=== PATIENT | female | born 1975 | race Caucasian/White ===

== ENCOUNTER 2016-04-22 13:49 | Emergency (ER) | payer BC | END 2016-04-22 17:55 | disposition left against medical advice (07) | LOC: UCCORT 13:49 | DX: Z53.21 Procedure and treatment not carried out due to patient leaving prior to being seen by health care provider (principal); M54.5 Low back pain ==

== ENCOUNTER 2016-08-23 08:54 | Day surgery (SDC) | payer BC ==
--- NOTE | 2016-08-20 18:12 | HP ---
PREOPERATIVE HISTORY AND PHYSICAL: DATE OF ADMISSION: 08/23/16 This patient is scheduled for same-day surgery admission by Dr. Mcgrath on Friday08/23/16. DATE OF EXAM: 08/20/16 ATTENDING SURGEON: Dr. Joan Mcgrath (dictated by Trinity Rios NP). CHIEF COMPLAINT: Bloody nipple discharge, left breast. HISTORY OF PRESENT ILLNESS: The patient is a 41-year-old female evaluated by Dr. Mcgrath on 06/24/16 when she presented for abnormal breast imaging. The patient noticed left breast nipple discharge after starting estrogen replacement in March 2016. She was sent for imaging and was told that biopsy revealed ductal hyperplasia. She was referred to Dr. Mcgrath for further management. She also complained of intermittent left breast nipple discharge, occasionally bloody. Dr. Mcgrath re-examined the patient in July 2016 and the patient at that time reported ongoing left breast bloody nipple discharge. Dr. Mcgrath has therefore recommended left breast terminal duct excision as a same- day surgery procedure and has described the nature of the surgical procedure, the rationale for the procedure, the relevant risks and benefits and today I reviewed the typical postoperative care and recovery. The patient denies any breast pain; Dr. Mcgrath indicates that the bloody nipple discharge is from one duct at about the 9 o'clock position on the left breast. The patient had her first child at age 20. She is 3 para 3. She is status post hysterectomy in 2000. She has never had any radiation to the chest; she does have a family history of breast cancer and ovarian cancer in her mother and her maternal grandmother had ovarian cancer. The patient states she had genetic testing and was told that she does not have "the gene." The patient has had a chance to ask questions and stated that she understands the information and is satisfied with the answers given to her questions. She will sign surgical consent on the day of surgery. PAST MEDICAL HISTORY: Significant for von Willebrand's disease and mitral valve prolapse. PAST SURGICAL HISTORY: Open hysterectomy in [place] in 2000; laparoscopic lysis of adhesions with left oophorectomy at [facility] 2001 for a benign large ovarian cyst. Open repair of a right inguinal hernia with mesh in 2001 with subsequent removal of the mesh in 2012 when she developed right groin discomfort. MEDICATIONS: 1. Estradiol 2 mg one half tablet by mouth daily. 2. DDAVP intranasal spray 0.5% one spray in each nostril to be taken on the morning of surgery, 08/23/16. 3. Probiotic at bedtime. 5. Topical clobetasol 0.05% applied vaginally daily. ALLERGIES: PENICILLIN causes rash. CIPRO caused GI upset. NAPROSYN caused difficulty breathing and swelling of her eyes and because she has von Willebrand 's disease, she is to avoid aspirin, ibuprofen and all NSAIDs. FAMILY HISTORY: The patient is adopted but she knows that her mother had both breast and ovarian cancer and her maternal grandmother had ovarian cancer. 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 She smokes less than a half a pack of cigarettes per day and is trying to quit. She did not want any additional smoking cessation information today. She denies the use of alcohol or other substances. REVIEW OF SYSTEMS: She has a history of mitral valve prolapse and is asymptomatic; she denies any history of deep vein thrombosis or pulmonary embolism; she denies any respiratory complaints; she denies any previous anesthesia complications; she denies any gastrointestinal complaints; she denies any dysuria; she has a history of von Willebrand's disease and denies any excessive bleeding; she has never received blood transfusion. She typically takes DDAVP intranasally before surgery. She denies any musculoskeletal conditions or complaints and denies any neurologic conditions or complaints. PHYSICAL EXAMINATION GENERAL: The patient is a 41-year-old female, well-developed, overweight, in no acute distress. VITAL SIGNS: Height 64 inches, weight 195 pounds, body mass index 35, blood pressure 126/82, pulse 76 and regular, respiratory rate 16. HEENT: Benign. NECK: Supple. No cervical lymphadenopathy. No thyromegaly. BACK: No CVA tenderness. BREASTS: Exam performed in a supine and in a sitting position. Breasts are symmetrical. Skin is intact. Palpation reveals no discrete masses in either breasts. Nipples are everted bilaterally. Occasionally, there is expressible bloody nipple discharge from the left breast. No visible or palpable supraclavicular lymphadenopathy or axillary lymphadenopathy bilaterally. LUNGS: Breath sounds bilaterally clear and equal. HEART: Regular rate and rhythm. No murmurs or rubs appreciated. ABDOMEN: Active bowel sounds. Soft, nondistended, nontender throughout. No obvious masses or organomegaly or evidence of umbilical hernia. EXTREMITIES: Warm without edema or skin ulcerations. PELVIC AND RECTAL: Deferred. NEUROLOGIC: Alert and oriented x3. Steady gait. SKIN: Warm, dry, intact. IMPRESSION: Bloody nipple discharge from the left breast. PLAN: Same-day surgery admission to Dr. Mcgrath's service on 08/23/16 for left breast terminal duct excision. CAITLYN RIOS NP CC: Dr. Mcgrath; Mukesh Harris NP* [id number]/[facility] #: [id number] [facility]
[~2016-08-23 08:54] MED LIST: Buffered Lidocaine 1% SYRIN* 3 ML/SYR SYRINGE INTRADERM ONE; Dexamethasone IV* 4 MG/ML 1 ML (4 MG) IV SLOW PU ONE; Famotidine IV* 10 MG/ML 2 ML (20 mg) IV ONE
[2016-08-23] MEDS ORDERED: Famotidine IV* 10 MG/ML 2 ML (20 mg) ONE (09:08)
[2016-08-23] MEDS ORDERED: Dexamethasone IV* 4 MG/ML 1 ML (4 MG) ONE (09:08)
[2016-08-23] MEDS ORDERED: Clindamycin 900 MG IVPREMIX(* 900 MG/50 ML SDV IV ONE (09:08)
[2016-08-23] MEDS ORDERED: fentaNYL* 50 MCG/ML 2 ML VIAL (100 MCG VIAL) ONE ×3 (10:31→12:32)
[2016-08-23] MEDS ORDERED: Midazolam* 1 MG/ML 5 ML VIAL (5 MG) ONE ×2 (10:31→11:15)
[2016-08-23] MEDS ORDERED: Propofol* 10 MG/ML 20 ML BTL IV PUSH ONE ×2 (10:32→11:46)
[2016-08-23] MEDS ORDERED: Ondansetron INJ* 2 MG/ML VIAL ONE ×2 (10:32→12:21)
[2016-08-23] MEDS ORDERED: Bupivacaine 0.5% SDV PF* 30 ML VIAL ONE (10:52)
[2016-08-23] MEDS ORDERED: Lidocaine 1% INJ* 10 MG/ML 30 ML SDV ONE (10:52)
[2016-08-23] MEDS ORDERED: Ondansetron INJ* 2 MG/ML VIAL IV PRN (10:58)
[2016-08-23] MEDS ORDERED: oxyCODONE/Acetamin 5/325 MG* TAB PO PRN (10:58)
[2016-08-23] MEDS ORDERED: oxyCODONE/Acetamin 5/325 MG* TAB ONE (12:21)
[2016-08-23] MEDS ORDERED: fentaNYL* 50 MCG/ML 2 ML VIAL (100 MCG VIAL) IV SLOW PU PRN (12:32)
[2016-08-23 13:15] VITALS: BP 129/73
--- NOTE | 2016-08-23 21:47 | OP ---
DATE OF OPERATION: 08/23/16 - [facility] DATE OF : 79 SURGEON: Joan Mcgrath MD BRONC BREAKER: PRE-OP DIAGNOSIS: Left breast bloody nipple discharge. POST-OP DIAGNOSIS: Left breast bloody nipple discharge. OPERATIVE PROCEDURE: Left breast terminal duct excision. INDICATIONS: Ms. Xiong is a 41-year-old woman who presented to the office with bloody nipple discharge. It took a couple of times to identify the ducts producing the discharge, but ultimately it was found to be on the medial aspect of the nipple and plans were made for surgical intervention. DESCRIPTION OF PROCEDURE: She was brought to the operating room, placed on the OR table in a supine position, and given an IV sedation. Attempts were made to identify the ducts producing the discharge and eventually after some local anesthetic has been instilled and she was sedated enough, manipulation was able to be done to produce the discharge from the duct on the medial aspect of the nipple. This was then probed and with some difficulty, probe was advanced into the duct a couple of millimeters. It did not go further than that suggesting perhaps the duct is blocked, but an incision was made in a circumareolar fashion on the medial aspect of the breast following a previous scar. Subcutaneous tissue was divided with electrocautery to elevate the medial edge of the areola until the region of the duct was encountered. A cluster of ducts from the region of the problem duct was encircled with the mosquito and divided. The distal end going to nipple was ligated and then using this cluster of duct with a clamp around it as a kind of an anchor, a cone of breast tissue was taken from around this cluster of duct. It was handed off as a specimen with usual markings and then hemostasis was assured with electrocautery. Once this was adequate, additional local was instilled into the wound. After the wound had been irrigated with copious normal saline and then closure was accomplished. 3-0 Polysorb was used to approximate subcutaneous layer and the skin was closed with 4-0 Surgipro in a subcuticular fashion. Steri-Strips and a dry sterile dressing were applied. All sponge and instruments counts were correct. The patient tolerated the procedure well and was transferred to recovery in a stable condition. CC: [facility]; Dr. Niecy Smith* [id number]/[facility] #: [id number] [facility]
== END 2016-08-23 13:17 | disposition home or self-care (01) ==
LOC: OR 08:54
PROVIDERS: ATTEND Surgery
DX: N64.52 Nipple discharge (principal); I34.1 Nonrheumatic mitral (valve) prolapse; F17.200 Nicotine dependence, unspecified, uncomplicated; D68.0 Von Willebrand disease
CPT/HCPCS: 88307; A9270-GY; J1100; J2001; J2250; J2405; J2704; J3010

== ENCOUNTER 2017-03-31 14:41 | Emergency (ER) | payer BC ==
[2017-03-31 15:08] VITALS: BP 131/69
--- NOTE | 2017-03-31 15:25 | UC ---
FLU HPI - HPI Summary HPI Summary: Pt states on Thur afternoon developed fatigue. Pt states progressively has developed a headache and neck stiffness. Pt denies other myalgia, arthralgias Pt sates has cough which at times causes post tussive emesis. Pt reports chills , no documented fever. Pt has taken Motrin/apap with short term improvement. Last NSAID at 13:00 today. 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 Pt has not seen child. Co- teacher has not been diagnoses with but is being tested. Pt is immonocompromised - on cellcept and Methotrexate for lichen sclerosis. no known flu contacts + influenza vaccine Pt's medications reviewed this visit - History of Current Complaint Chief Complaint: UCGeneralIllness Stated Complaint: HEADACHE UPPER RESPIRATORY Time Seen by Provider: 03/31/17 15:08 Hx Obtained From: Patient Hx Last Menstrual Period: 2000 Onset/Duration: Gradual Onset Severity Currently: Moderate Severity Initially: Moderate Associated Signs & Symptoms: Positive: Fever - Allergy/Home Medications Allergies/Adverse Reactions: Allergies Allergy/AdvReac Type Severity Reaction Status Date / Time Aspirin Allergy Severe Edema Verified 08/21/16 11:24 Doxycycline Allergy Severe rash, hives Verified 08/21/16 11:24 Erythromycin Allergy Severe rash, hives Verified 08/21/16 11:24 Lactose Intolerance (GI) Allergy Severe GI Upset Verified 08/21/16 11:24 Naproxen Allergy Severe Edema, Verified 08/21/16 11:24 swelling Penicillins Allergy Severe Rash, Verified 08/21/16 11:24 upset stomach Ciprofloxacin [From Cipro] Allergy Intermediate GI UPSET, Verified 08/21/16 11: 24 HIVES Gluten Meal AdvReac Severe inflammatio Verified 08/21/16 11:24 n Home Medications: Home Medications Acetaminophen [Acetaminophen Extra Stren] 1,000 mg PO Q6H PRN 03/31/17 [History Confirmed 03/31/17] Folic Acid 800 mcg PO SEE INSTRUCTIONS 03/31/17 [History Confirmed 03/31/17] Ibuprofen [Ibuprofen 200 MG] 400 mg PO Q6H PRN 03/31/17 [History Confirmed 03/31] Lactobacillus [Probiotic] 1 cap PO DAILY 03/31/17 [History Confirmed 03/31/17] Methotrexate TAB* 2.5 mg PO WEEKLY 03/31/17 [History Confirmed 03/31/17] Mycophenolate Mofetil [Cellcept] 500 mg PO BID 03/31/17 [History Confirmed 03/31] PMH/Surg Hx/FS Hx/Imm Hx Previously Healthy: 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 REMOVAL OF LEFT BREAST DUCTS X 2. LUMPECTOMY - Family History Known Family History: Positive: Hypertension - Social History Occupation: Employed Full-time Lives: With Family Alcohol Use: None Substance Use Type: None Smoking Status (MU): Light Every Day Tobacco Smoker Type: Cigarettes Amount Used/How Often: 1/4 pack PER DAY- 23 years Length of Time of Smoking/Using Tobacco: 23 YRS Have You Smoked in the Last Year: Yes Household Exposure Type: Cigarettes - Immunization History Most Recent Influenza Vaccination: no Most Recent Tetanus Shot: 2013 Review of Systems Constitutional: Chills Skin: Other - lichen sclerosis ENT: Sinus Congestion Respiratory: Cough Gastrointestinal: Abdominal Pain - from coughing, Vomiting - post -tussive Motor: Negative Neurovascular: Negative Musculoskeletal: Negative Neurological: Headache Is Patient Immunocompromised?: Yes All Other Systems Reviewed And Are Negative: Yes Physical Exam Triage Information Reviewed: Yes Appearance: Signs of Trauma - tired appearing, coarse cough Vital Signs: Initial Vital Signs Temp 98.5 F 03/31/17 14:59 Pulse 113 03/31/17 14:59 Resp 18 03/31/17 14:59 BP 131/69 03/31/17 14:59 Pulse Ox 99 03/31/17 14:59 Vital Signs Reviewed: Yes Eye Exam: Normal Eyes: Positive: Conjunctiva Clear ENT Exam: Normal ENT: Positive: Pharynx normal, Nasal congestion Dental Exam: Normal Neck: Positive: Other: - pt without full lateral rotation. Pt with discomfort right paraspinal cervical area Respiratory: Positive: Chest non-tender, Normal breath sounds, No accessory muscle use, Other: - coarse, intermittent cough no w/r Cardiovascular: Positive: RRR - tachycardic, No Murmur, Pulses Normal Abdomen Description: Positive: Nontender, No Organomegaly, Soft Bowel Sounds: Positive: Present Musculoskeletal Exam: Normal Musculoskeletal: Positive: Strength Intact, ROM Intact Neurological Exam: Normal Neurological: Positive: Alert Psychological Exam: Normal Psychological: Positive: Normal Response To Family Skin Exam: Normal Flu Course/Dx - Course Course Of Treatment: Pt with chills, neck stiffness, headache and fatigue progressive x 4 days. Pt with immunocompromised. Pt with secondary exposure to meningitis. d/w pt at length - recommend pt to ED for further evaluation. Pt states understanding and agreement with plan. mom present, silvio drive to ED. Spoke to Juliana Acuña NP in ED - aware of pts hx and plan to send to ED - Differential Dx/Diagnosis Provider Diagnoses: chills, headache, neck pain, cough Discharge - Discharge Plan Condition: Stable Disposition: OTHER Discharge Disposition Comment: [facility] Patient Education Materials: Musculoskeletal Pain (ED), General Headache (ED) Referrals: Nani Smith MD [Medical Doctor] - Additional Instructions: The doctor that evaluated you today recommends you go to the emergency department for additional testing and treatment of your medical condition. Testing that is performed will be at the discretion of the provider taking care of you at the emergency department.
== END 2017-03-31 15:32 ==
LOC: UCCORT 14:41
DX: R68.83 Chills (without fever) (principal); R51 Headache; M54.2 Cervicalgia; R05 Cough; F17.210 Nicotine dependence, cigarettes, uncomplicated
CPT/HCPCS: 99212; G0463

== ENCOUNTER 2017-05-16 09:56 | Emergency (ER) | payer BC ==
[2017-05-16 10:28] VITALS: BP 134/80
--- NOTE | 2017-05-16 10:54 | UC ---
Respiratory Complaint HPI - HPI Summary HPI Summary: 42F presents with cough, fever, sore throat, and ear pain for 3 days. She has history of lichen sclerosus and is on chemo weekly. She states the ibuprofen has been controlled her fever. She denies any muscle aches. She admits to SOB but denies any chest pain. The cough is productive. She has been taking cough medication without relief. She denies any abdominal pain, nausea, vomiting, or diarrhea. Her appetite has been decreased. She states the rest of her family was diagnosed with the flu. - History of Current Complaint Chief Complaint: UCGeneralIllness Stated Complaint: EAR PAIN, SORE THROAT Time Seen by Provider: 05/16/17 10:32 Hx Last Menstrual Period: 2000 Pain Intensity: 6 - Allergies/Home Medications Allergies/Adverse Reactions: Allergies Allergy/AdvReac Type Severity Reaction Status Date / Time Aspirin Allergy Severe Edema Verified 05/16/17 10:25 Doxycycline Allergy Severe rash, hives Verified 05/16/17 10:25 Erythromycin Allergy Severe rash, hives Verified 05/16/17 10:25 Lactose Intolerance (GI) Allergy Severe GI Upset Verified 05/16/17 10:25 Naproxen Allergy Severe Edema, Verified 05/16/17 10:25 swelling Penicillins Allergy Severe Rash, Verified 05/16/17 10:25 upset stomach Ciprofloxacin [From Cipro] Allergy Intermediate GI UPSET, Verified 05/16/17 10: 25 HIVES Gluten Meal AdvReac Severe inflammatio Verified 05/16/17 10:25 n Home Medications: Home Medications Methotrexate TAB* 25 mg PO WEEKLY 05/16/17 [History Confirmed 05/16/17] Mycophenolate Mofetil TAB(*) [Cellcept TAB(*)] 500 mg PO BID 05/16/17 [History Confirmed 05/16/17] PMH/Surg Hx/FS Hx/Imm Hx Endocrine History: Other Other Endocrine History: no DM Other Cancer History: on chemo for lichen sclerosus - Surgical History Surgical History: Yes Surgery Procedure, Year, and Place: hysterectomy- 1999, [place], [place] WITH APPENDECTOMY LAPAROSCOPY, [id number], YARON hernia-2000, 2015, [facility] [place] FROM DOG BITE, 2008, [facility]. REMOVAL OF LEFT BREAST DUCTS X 2. LUMPECTOMY - Family History Known Family History: Positive: Hypertension - Social History Alcohol Use: Rare Substance Use Type: None Smoking Status (MU): Light Every Day Tobacco Smoker Type: Cigarettes Amount Used/How Often: 1/2 pack PER DAY- 23 years Length of Time of Smoking/Using Tobacco: 23 YRS Have You Smoked in the Last Year: Yes Household Exposure Type: Cigarettes - Immunization History Most Recent Influenza Vaccination: no Most Recent Tetanus Shot: 2012 Review of Systems Constitutional: Fever ENT: Sore Throat, Ear Ache, Nasal Discharge Respiratory: Shortness Of Breath, Cough Cardiovascular: Negative All Other Systems Reviewed And Are Negative: Yes Physical Exam Triage Information Reviewed: Yes Appearance: Well-Appearing Vital Signs: Initial Vital Signs Temp 98.2 F 05/16/17 10:18 Pulse 102 05/16/17 10:18 Resp 18 05/16/17 10:18 BP 134/80 05/16/17 10:18 Pulse Ox 98 05/16/17 10:18 Eye Exam: Normal ENT: Positive: Pharyngeal erythema, Nasal congestion, Uvula midline, Other - soft palate symmetric. Negative: Tonsillar swelling, Tonsillar exudate, Trismus , Muffled voice Neck: Positive: Supple, Nontender, No Lymphadenopathy Respiratory: Positive: Lungs clear, Normal breath sounds Cardiovascular: Positive: RRR Abdomen Description: Positive: Nontender, Soft Bowel Sounds: Positive: Present Musculoskeletal Exam: Normal Neurological Exam: Normal Psychological Exam: Normal Skin Exam: Normal UC Diagnostic Evaluation - Laboratory O2 Sat by Pulse Oximetry: 98 - Radiology Xray Interpretation: No Acute Changes Radiology Interpretation Completed By: Radiologist Respiratory Course/Dx - Course Course Of Treatment: 42F presents with cough, fever, sore throat, and ear pain for 3 days. She has history of lichen sclerosus and is on chemo weekly. She states the ibuprofen has been controlled her fever. She denies any muscle aches. She admits to SOB but denies any chest pain. The cough is productive. She has been taking cough medication without relief. She denies any abdominal pain, nausea, vomiting, or diarrhea. Her appetite has been decreased. She states the rest of her family was diagnosed with the flu. on exam lungs CTA. pharynx normal. explained would like patient to go to ED for further testing since is immunocomprised but patient refused. will do what can here. strept neg. chest xray normal. flu neg. will treat with tamiflu due to flu exposure and immunocompromised. will do inhaler and magic mouth wash for sympatomatic care. advised patient if anything changes to go to the ED. medication reviewed. patient can follow up with primary about blood pressure being in pre-htn range. patient understand and agrees with plan. - Differential Dx/Diagnosis Differential Diagnosis/HQI/PQRI: Bronchitis, Influenza, Lower Resp Infection Provider Diagnoses: flu exposure, upper respiratory infection Discharge - Discharge Plan Condition: Stable Disposition: HOME Prescriptions: Albuterol HFA INHALER* [Ventolin HFA Inhaler*] 1 puff INH Q4H PRN #1 mdi PRN Reason: Cough Magic Mouth Was-HI/MAAL/LIDO* 5 ml SWISH SPIT QID #100 ml Oseltamivir CAP* [Tamiflu CAP*] 75 mg PO DAILY #7 cap Patient Education Materials: Upper Respiratory Infection (ED) Referrals: Moise Gann MD [Primary Care Provider] - Additional Instructions: It is still advised that you go to ED for further testing. If anything changes you need to go there. Will prophylactic treat for flu once a daily for 7 days Use inhaler one puff every 4 hours for cough as needed Take magic mouth was 5ml four times a day for sore throat Use saline in the nose for nasal congestion Use humidifier or place warm bowls of water around the room for cough Take Tylenol and ibuprofen for pain/fever every 6 hours Follow up with primary within 5 days
--- NOTE | 2017-05-16 10:59 | RAD ---
INDICATION: Cough and fever COMPARISON: June 01, 2013 TECHNIQUE: PA and lateral dual-energy views were obtained. FINDINGS: Bones/Soft Tissues: There are no acute bony findings. Cardiomediastinal: The cardiomediastinal silhouette is normal. Lungs: There are no infiltrates. Pleura: There are no pleural effusions. Other: None IMPRESSION: NORMAL CHEST
== END 2017-05-16 11:24 | disposition home or self-care (01) ==
LOC: UCCORT 09:56
DX: J06.9 Acute upper respiratory infection, unspecified (principal); Z20.828 Contact with and (suspected) exposure to other viral communicable diseases
CPT/HCPCS: 71046; 87502; 87651; 99212; G0463

== ENCOUNTER 2017-06-23 16:49 | Emergency (ER) | payer BC ==
--- NOTE | 2017-06-23 19:16 | RAD ---
Indication: Paresthesias. Sagittal and axial T1, axial T2, FLAIR, diffusion and susceptibility weighted images of the brain were obtained. Ventricular structures are midline. No midline shift is noted. The extra-axial spaces are unremarkable. No restriction of diffusion is noted. Susceptibility weighted images demonstrates no susceptibility weighted artifact. T2 and FLAIR images demonstrates no evidence of abnormal signal. There may be some minimal fluid in the right posterior ethmoid air cells. IMPRESSION: No intracranial lesion is identified. No evidence of acute infarct is noted.
[2017-06-23] MEDS ORDERED: HYDROmorphone INJ* 1 MG/ML CARPUJECT SYRINGE IV ONE (20:11)
[2017-06-23] MEDS ORDERED: Metoclopramide IV* 5 MG/ML 2 ML VIAL IV ONE (20:11)
[2017-06-23 20:43] VITALS: BP 130/70
--- NOTE | 2017-06-24 13:20 | ED ---
Arley Lopez Julia, scribed for Kaden Quintana MD on 06/23/17 at 1710 . Complex/Multi-Sys Presentation - HPI Summary HPI Summary: This patient is a 42 year old F BIBA to [facility] from [facility] due to an sudden severe right sided headache at 10:00 today, with subsequent chest pressure, SVT , right facial and arm numbness and tingling, and currently resolved RLE tingling. She denies weakness. The patient rates the headache an 8/10 in severity and describes it as " pounded by a hammer." Symptoms improved at [facility] by IV Adenosine. She states she was informed of a possible small stroke at [facility]. Patient has a hx of occipital migraines. - History Of Current Complaint Chief Complaint: EDDysrhythmPalp Time Seen by Provider: 06/23/17 16:58 Hx Obtained From: Patient Onset/Duration: Sudden Onset, Lasting Hours, Still Present Severity Currently: Severe Severity Initially: Moderate Location: Pain At: - right sided headache Character: Sharp - "pounded by hammer" Related History: Other - chest pressure, tachycardia of 256 BPM, right facial and arm numbness and tingling, and currently resolved RLE tingling - Allergies/Home Medications Allergies/Adverse Reactions: Allergies Allergy/AdvReac Type Severity Reaction Status Date / Time aspirin Allergy Bleeding Verified 06/23/17 17:25 ciprofloxacin [From Cipro] Allergy GI Upset Verified 06/23/17 17:25 doxycycline Allergy Rash Verified 06/23/17 17:25 erythromycin base Allergy Rash Verified 06/23/17 17:25 naproxen Allergy Edema Verified 06/23/17 17:25 Penicillins Allergy Rash Verified 06/23/17 17:25 PMH/Surg Hx/FS Hx/Imm Hx Cardiovascular History: Reports: Hx Valvular Heart Disease - mitral valve prolapse, Other Cardiovascular Problems/Disorders - Von Willebrand Denies: Hx Congestive Heart Failure, Hx Hypertension, Hx Pacemaker/ICD Respiratory History: Denies: Hx Asthma, Hx Chronic Obstructive Pulmonary Disease (COPD), Other Respiratory Problems/Disorders GI History: Denies: Other GI Disorders History: Comment Only: Other Problems/Disorders - LOIN PAIN HEMATURIA IN THE PAST R /O ALPORTS DISEASE Sensory History: Denies: Hx Contacts or Glasses, Hx Hearing Aid Opthamlomology History: Denies: Hx Contacts or Glasses Neurological History: Reports: Hx Migraine Denies: Other Neuro Impairments/Disorders Psychiatric History: Denies: Hx Panic Disorder - Cancer History Cancer Type, Location and Year: Ovarian and Cervical CA(pt states this is unconfirmed states never got her results from doctor but it was suspected) - Surgical History Surgery Procedure, Year, and Place: hysterectomy- 1999, [place], [place] WITH APPENDECTOMY LAPAROSCOPY, [id number], YARON hernia-2000, 2014, [facility] [place], 2008, [facility]. REMOVAL OF LEFT BREAST DUCTS X 2. LUMPECTOMY Hx Anesthesia Reactions: No Infectious Disease History: No Infectious Disease History: Denies: Hx Clostridium Difficile, Hx Hepatitis, Hx Human Immunodeficiency Virus (HIV), Hx of Known/Suspected MRSA, Hx Shingles, Hx Tuberculosis, Hx Known/ Suspected VRE, Hx Known/Suspected VRSA, History Other Infectious Disease, Traveled Outside the in Last 30 Days - Family History Known Family History: Positive: Hypertension - Social History Alcohol Use: Rare Substance Use Type: Reports: None Smoking Status (MU): Light Every Day Tobacco Smoker Type: Cigarettes Amount Used/How Often: 1/2 pack PER DAY- 23 years Length of Time of Smoking/Using Tobacco: 23 YRS Have You Smoked in the Last Year: Yes Review of Systems Cardiovascular: Other - chest pressure Positive: Palpitations - tachycardia Positive: Headache, Numbness - and tingling R arm face and RLE. Negative: Weakness All Other Systems Reviewed And Are Negative: Yes Physical Exam - Summary Physical Exam Summary: Appearance: The patient is well-nourished in no acute distress and in no acute pain. Skin: The skin is warm and dry and skin color reflects adequate perfusion. HEENT: The head is normocephalic and atraumatic. The pupils are equal and reactive. The conjunctivae are clear and without drainage. Nares are patent and without drainage. Mouth reveals moist mucous membranes and the throat is without erythema and exudate. The external ears are intact. The ear canals are patent and without drainage. The tympanic membranes are intact. Neck: the neck is supple with full range of motion and non-tender. There are no carotid bruits. There is no neck vein distension. Respiratory: Chest is non-tender. Lungs are clear to auscultation and breath sounds are symmetrical and equal. Cardiovascular: Heart is regular rate and rhythm. There is no murmur or rub auscultated. There is no peripheral edema and pulses are symmetrical and equal. Abdomen: The abdomen is soft and non-tender. There are normal bowel sounds heard in all four quadrants and there is no organomegaly palpated. Musculoskeletal: There is no back tenderness noted. Extremities are non-tender with full range of motion. There is good capillary refill. There is no peripheral edema or calf tenderness elicited. Neurological: Patient is alert and oriented to person, place and time. The patient has symmetrical motor strength in all four extremities. Cranial nerves are grossly intact. Deep tendon reflexes are symmetrical and equal in all four extremities. Psychiatric: The patient has an appropriate affect and does not exhibit any anxiety or depression. Triage Information Reviewed: Yes Vital Signs On Initial Exam: Initial Vitals Temp Pulse Resp BP Pulse Ox 97.0 F 82 15 143/78 98 06/23/17 16:53 06/23/17 16:53 06/23/17 16:53 06/23/17 16:53 06/23/17 16:53 Vital Signs Reviewed: Yes Diagnostics - Vital Signs Vital Signs Temp Pulse Resp BP Pulse Ox 06/23/17 16:53 97.0 F 82 15 143/78 98 - Laboratory Lab Statement: Any lab studies that have been ordered have been reviewed, and results considered in the medical decision making process. - Radiology Brain MRI Radiology Interpretation Completed By: Radiologist - No intracranial lesion is identified. No evidence of acute infarct is noted. ED Physician has reviewed this report. Complex Multi-Symp Course/Dx Course Of Treatment: Ms. Xiong was sent over from [facility] ED. She presented there with palpitations, was found to be in SVT and was converted with Adenosine. On presentation, she had a LZACANO and right-sided facial, arm and leg numbness/tingling parasthesias. She continued C/O the right facial parasthesias after conversion and was W/U'd with a CT and CTA. She was transferred here after consulting with Dr. Davila. I spoke with Dr. Davila who recommended an MRI which was negative and he felt she was OK for D/C. Dr. Amos agreed that since her SVT had not recurred, She could be followed as an outpatient. - Diagnoses Provider Diagnoses: SVT (supraventricular tachycardia), Facial paresthesia - Physician Notifications Discussed Care Of Patient With: Perri Davila - neurology Time Discussed With Above Provider: 17:07 Instructed by Provider To: Other - recomends MRI Discharge - Discharge Plan Condition: Stable Disposition: HOME Patient Education Materials: Supraventricular Tachycardia (ED) Referrals: Moise Gann MD [Primary Care Provider] - 1 Week (Follow up with your primary care provider within the week.) The documentation as recorded by the Arley gonzalez Julia accurately reflects the service I personally performed and the decisions made by me, Kaden Quintana MD.
== END 2017-06-23 21:31 | disposition home or self-care (01) ==
LOC: ED 16:49
DX: I47.1 Supraventricular tachycardia (principal); F17.210 Nicotine dependence, cigarettes, uncomplicated; R20.2 Paresthesia of skin; R51 Headache
CPT/HCPCS: 70551; 99283; J1170; J2765

== ENCOUNTER 2017-09-22 11:51 | Emergency (ER) | payer BC ==
[2017-09-22 12:27] VITALS: BP 123/89
--- NOTE | 2017-09-22 12:52 | UC ---
Shoulder Pain HPI - HPI Summary HPI Summary: Pt c/o gradual onset of right scapular pain that radiates to right proximal humeral head and to right elbow. Denies, injury or trauma. Lorenzo history of blood clots. - History of Current Complaint Chief Complaint: UCUpperExtremity Stated Complaint: RIGHT SHOULDER Time Seen by Provider: 09/22/17 12:41 Hx Obtained From: Patient Hx Last Menstrual Period: 2000 ?: No Onset/Duration: Gradual Onset, Lasting Days, Still Present, Worse Since - onset Timing: Constant Severity Initially: Mild Severity Currently: Severe Pain Intensity: 8 Character: Dull, Aching, Stiffness Aggravating Factor(s): Movement Alleviating Factor(s): Rest Associated Signs And Symptoms: Positive: Negative Related History: Dominant Hand Right - Risk Factors Non-Orthopedic Risk Factor: Negative DVT Risk Factors: Smoking Septic Arthritis Risk Factor: Negative - Allergies/Home Medications Allergies/Adverse Reactions: Allergies Allergy/AdvReac Type Severity Reaction Status Date / Time doxycycline Allergy Rash Verified 09/22/17 12:28 erythromycin base Allergy Rash Verified 09/22/17 12:28 Penicillins Allergy Rash Verified 09/22/17 12:28 aspirin AdvReac Bleeding Verified 09/22/17 12:28 ciprofloxacin [From Cipro] AdvReac GI Upset Verified 09/22/17 12:28 naproxen AdvReac Edema Verified 09/22/17 12:28 Home Medications: Home Medications Acetaminophen [Acetaminophen Extra Strength] 1,000 mg PO Q4HR PRN 09/22/17 [ History Confirmed 09/22/17] PMH/Surg Hx/FS Hx/Imm Hx Previously Healthy: Yes - Surgical History Surgical History: Yes Surgery Procedure, Year, and Place: hysterectomy- 1999, [place], [place] WITH APPENDECTOMY LAPAROSCOPY, [phone], YARON hernia-2000, [place] [facility] [place], [place], [facility]. REMOVAL OF LEFT BREAST DUCTS X 2. LUMPECTOMY - Family History Known Family History: Positive: Hypertension - Social History Occupation: Employed Full-time Lives: With Family Alcohol Use: Rare Substance Use Type: None Smoking Status (MU): Heavy Every Day Tobacco Smoker Type: Cigarettes Amount Used/How Often: 1/2 pack PER DAY Length of Time of Smoking/Using Tobacco: since age 18 Have You Smoked in the Last Year: Yes Household Exposure Type: Cigarettes - Immunization History Most Recent Influenza Vaccination: no Most Recent Tetanus Shot: 2012 Review of Systems Constitutional: Negative Skin: Negative Eyes: Negative ENT: Negative Respiratory: Negative Cardiovascular: Negative Gastrointestinal: Negative Genitourinary: Negative Motor: Decreased ROM - right shoulder Neurovascular: Negative Musculoskeletal: Arthralgia, Decreased ROM - right shoulder, Myalgia Neurological: Negative Psychological: Negative Is Patient Immunocompromised?: No All Other Systems Reviewed And Are Negative: Yes Physical Exam Triage Information Reviewed: Yes Appearance: Pain Distress Vital Signs: Initial Vital Signs Temp 98.4 F 09/22/17 12:17 Pulse 99 09/22/17 12:17 Resp 14 09/22/17 12:17 BP 123/89 09/22/17 12:17 Pulse Ox 99 09/22/17 12:17 Vital Signs Reviewed: Yes Eye Exam: Normal ENT Exam: Normal Dental Exam: Normal Neck exam: Normal Respiratory Exam: Normal Cardiovascular Exam: Normal Musculoskeletal Exam: Other Musculoskeletal: Positive: Strength Limited @, ROM Limited @ - right shoulder and scapula Neurological Exam: Normal Psychological Exam: Normal Skin Exam: Normal Shoulder Course/Dx - Differential Dx/Diagnosis Differential Diagnosis/HQI/PQRI: Tendonitis Provider Diagnoses: trigger point tenderness. tendonitis Discharge - Sign-Out/Discharge Documenting (check all that apply): Discharge/Admit/Transfer - Discharge Plan Condition: Stable Disposition: HOME Prescriptions: Cyclobenzaprine TAB* [Flexeril 10 MG TAB*] 10 mg PO TID PRN #15 tab PRN Reason: Pain predniSONE TAB* [Deltasone 10 MG TAB*] 30 mg PO DAILY #9 tab Patient Education Materials: Trigger Point Pain (ED), Arthralgia (ED) Forms: *Work Release Referrals: Colleen Brown MD [Primary Care Provider] - If Needed - Billing Disposition and Condition Condition: STABLE Disposition: Home
[2017-09-22] MEDS ORDERED: Ketorolac INJ* 60 MG/2 ML VIAL IM ONE (12:53)
== END 2017-09-22 13:13 | disposition home or self-care (01) ==
LOC: UCCORT 11:51
DX: M75.91 Shoulder lesion, unspecified, right shoulder (principal); F17.210 Nicotine dependence, cigarettes, uncomplicated; Z88.6 Allergy status to analgesic agent; Z88.0 Allergy status to penicillin; Z88.9 Allergy status to unspecified drugs, medicaments and biological substances
CPT/HCPCS: 99212; G0463; J1885

== ENCOUNTER 2017-10-02 08:18 | Emergency (ER) | payer BC ==
[2017-10-02 09:06] VITALS: BP 137/66
--- NOTE | 2017-10-02 10:29 | UC ---
Skin Complaint HPI - HPI Summary HPI Summary: 42 year old female on cell cept presents right arm rash and pain. Has tingling sensation right shoulder down to wrist for 10 days and about 5 days ago had itching in the skin on the arm and then 3 days ago had a raised vesicular rash right arm a and tingling in the arm as well. no fever. has had stress and works sometimes 16 hours a day - History of Current Complaint Chief Complaint: UCUpperExtremity Time Seen by Provider: 10/02/17 10:04 Stated Complaint: NAUSEA Hx Obtained From: Patient Hx Last Menstrual Period: 2000 Onset/Duration: Gradual Onset Skin Exposure Onset/Duration: Days Ago Timing: Constant Onset Severity: Moderate Current Severity: Moderate Pain Intensity: 7 Aggravating Factor(s): Nothing Alleviating Factor(s): Nothing Associated Signs & Symptoms: Positive: Negative, Tenderness - Allergy/Home Medications Allergies/Adverse Reactions: Allergies Allergy/AdvReac Type Severity Reaction Status Date / Time doxycycline Allergy Rash Verified 10/02/17 09:01 erythromycin base Allergy Rash Verified 10/02/17 09:01 Penicillins Allergy Rash Verified 10/02/17 09:01 aspirin AdvReac Bleeding Verified 10/02/17 09:01 ciprofloxacin [From Cipro] AdvReac GI Upset Verified 10/02/17 09:01 naproxen AdvReac Edema Verified 10/02/17 09:01 Review of Systems Skin: Rash Neurological: Other - right arm tingling / pain to touch Is Patient Immunocompromised?: No All Other Systems Reviewed And Are Negative: Yes PMH/Surg Hx/FS Hx/Imm Hx Previously Healthy: Yes - on cellcept for chronic medical conditions - Surgical History Surgical History: Yes Surgery Procedure, Year, and Place: hysterectomy- 1999, [place], [place] WITH APPENDECTOMY LAPAROSCOPY, [phone], [place] hernia-2000, [place] [facility] [place], [place], [facility]. REMOVAL OF LEFT BREAST DUCTS X 2. LUMPECTOMY - Family History Known Family History: Positive: Hypertension - Social History Alcohol Use: Rare Substance Use Type: None Smoking Status (MU): Heavy Every Day Tobacco Smoker Type: Cigarettes Amount Used/How Often: 1/2 pack PER DAY Length of Time of Smoking/Using Tobacco: since age 18 Have You Smoked in the Last Year: Yes Household Exposure Type: Cigarettes - Immunization History Most Recent Influenza Vaccination: no Most Recent Tetanus Shot: 2012 Physical Exam Triage Information Reviewed: Yes Appearance: Well-Appearing, No Pain Distress, Well-Nourished Vital Signs: Initial Vital Signs Temp 98.4 F 10/02/17 08:56 Pulse 99 10/02/17 08:56 Resp 16 10/02/17 08:56 BP 137/66 10/02/17 08:56 Pulse Ox 99 10/02/17 08:56 Vital Signs Reviewed: Yes Eye Exam: Normal Respiratory Exam: Normal Cardiovascular Exam: Normal Musculoskeletal Exam: Normal Neurological Exam: Normal Psychological Exam: Normal Skin: Positive: rashes - vesiclo papular rash grouped right medial biceps no streaking. no induration. Course/Dx - Course Course Of Treatment: shingles with some PHN -- treat at this time - Differential Diagnoses - Skin Complaint Differential Diagnoses: Local Allergic Reaction, Varicella Zoster, Viral Exanthem - Diagnoses Provider Diagnoses: shingles Discharge - Sign-Out/Discharge Documenting (check all that apply): Discharge/Admit/Transfer - Discharge Plan Condition: Good Disposition: HOME Prescriptions: Lidocaine PATCH 5%* [Lidoderm 5% Patch*] 1 patch TRANSDERM DAILY #14 patch Valacyclovir HCl [Valacyclovir] 1 gm PO TID 7 Days #21 tab Patient Education Materials: Shingles (ED) Forms: *Work Release Referrals: Colleen Brown MD [Primary Care Provider] - 4 Days - Billing Disposition and Condition Condition: GOOD Disposition: Home
== END 2017-10-02 10:42 | disposition home or self-care (01) ==
LOC: UCCORT 08:18
DX: B02.9 Zoster without complications (principal); Z88.6 Allergy status to analgesic agent; Z88.1 Allergy status to other antibiotic agents; Z88.0 Allergy status to penicillin; F17.210 Nicotine dependence, cigarettes, uncomplicated
CPT/HCPCS: 99212; G0463

== ENCOUNTER 2017-12-02 12:40 | Emergency (ER) | payer BC ==
[2017-12-02 13:26] VITALS: BP 129/88
[2017-12-02] MEDS ORDERED: HYDROcodone/ACETAMIN 5-325 MG* 1 TAB PO ONE (14:04)
--- NOTE | 2017-12-02 14:12 | UC ---
Back Pain HPI - HPI Summary HPI Summary: WAS VACUUMING THE STAIRS 2 DAYS AGO. WHEN SHE STOOD UP SHE HEARD A POP AND HAD IMMEDIATE PAIN IN HER LEFT LOW BACK. PAIN IS RADIATING INTO HER HIP. SHE DENIES NUMBNESS AND TINGLING OF THE FEET. NO SADDLE ANESTHESIA. IBUPROFEN NOT HELPFUL. - History of Current Complaint Chief Complaint: UCBackPain Stated Complaint: BACK PAIN Time Seen by Provider: 12/02/17 13:50 Hx Obtained From: Patient Hx Last Menstrual Period: 2000 Onset/Duration: Sudden Onset, Lasting Days, Still Present Timing: Constant Severity Initially: Moderate Severity Currently: Moderate Pain Intensity: 7 Pain Scale Used: 0-10 Numeric Back Pain: Is Discrete @ - LEFT LOW BACK Aggravating Factor(s): Movement Alleviating Factor(s): Rest Associated Signs And Symptoms: Negative: Weakness, Numbness, Bladder Incontinence, Bowel Incontinence - Allergies/Home Medications Allergies/Adverse Reactions: Allergies Allergy/AdvReac Type Severity Reaction Status Date / Time doxycycline Allergy Rash Verified 12/02/17 13:26 erythromycin base Allergy Rash Verified 12/02/17 13:26 Penicillins Allergy Rash Verified 12/02/17 13:26 aspirin AdvReac Bleeding Verified 12/02/17 13:26 ciprofloxacin [From Cipro] AdvReac GI Upset Verified 12/02/17 13:26 naproxen AdvReac Edema Verified 12/02/17 13:26 PMH/Surg Hx/FS Hx/Imm Hx - Additional Past Medical History Additional PMH: ALPORTS SYNDROME, VON [place]IL[place]BRAND - Surgical History Surgical History: Yes Surgery Procedure, Year, and Place: hysterectomy- 1999, [place], [place] WITH APPENDECTOMY LAPAROSCOPY, [id number], YARON hernia-2000, [place] [facility] [place], [place], [facility]. REMOVAL OF LEFT BREAST DUCTS X 2. LUMPECTOMY - Family History Known Family History: Positive: Hypertension - Social History Alcohol Use: Rare Substance Use Type: None Smoking Status (MU): Heavy Every Day Tobacco Smoker Type: Cigarettes Amount Used/How Often: 1/2 pack PER DAY Length of Time of Smoking/Using Tobacco: since age 18 Have You Smoked in the Last Year: Yes Household Exposure Type: Cigarettes - Immunization History Most Recent Influenza Vaccination: no Most Recent Tetanus Shot: 2012 Review of Systems Constitutional: Negative Skin: Negative Respiratory: Negative Cardiovascular: Negative Gastrointestinal: Negative Genitourinary: Negative Musculoskeletal: Arthralgia, Decreased ROM, Myalgia All Other Systems Reviewed And Are Negative: Yes Physical Exam Triage Information Reviewed: Yes Appearance: Well-Nourished, Pain Distress - MODERATE Vital Signs: Initial Vital Signs Temp 97.9 F 12/02/17 13:23 Pulse 117 12/02/17 13:23 Resp 18 12/02/17 13:23 BP 129/88 12/02/17 13:23 Pulse Ox 100 12/02/17 13:23 Vital Signs Reviewed: Yes Eyes: Positive: Conjunctiva Clear ENT: Positive: Hearing grossly normal Neck: Positive: Supple Respiratory: Positive: No respiratory distress, No accessory muscle use Cardiovascular: Positive: Pulses Normal Abdomen Description: Positive: Soft Musculoskeletal: Positive: No Edema, ROM Limited @ - BACK, Other: - TTP LEFT LOW BACK. NEG STRAIGHT LEG RAISE Neurological: Positive: Alert Psychological: Positive: Age Appropriate Behavior Skin: Negative: rashes Diagnostics - Radiology LUMBARSACRAL XRAYS Xray Interpretation: Positive (See Comments) - MILD DEGENERATIVE DISC DISEASE AND OSTEOARTHRITIS, MOST PRONOUNCED AT L5-S1. Radiology Interpretation Completed By: Radiologist Back Pain Course/Dx - Course Course Of Treatment: XRAY WITH OA/DDD. PT NOT TO TAKE NSAIDS DUE TO BLEEDING D/ O. FLEXERIL AND HYDROCODONE/APAP. F/U PCP. TO ED IF SX WORSE. - Differential Dx/Diagnosis Provider Diagnoses: ACUTE LOW BACK STRAIN/DDD Discharge - Sign-Out/Discharge Documenting (check all that apply): Patient Departure - Discharge Plan Condition: Stable Disposition: HOME Prescriptions: Cyclobenzaprine TAB* [Flexeril TAB*] 10 mg PO BID PRN #30 tab PRN Reason: Pain HYDROcodone/ACETAMIN 5-325 MG* [[place] 5-325 TAB*] 1 tab PO Q6H PRN #15 tab MDD 4 PRN Reason: Pain Patient Education Materials: Low Back Strain (ED) Referrals: Colleen Brown MD [Primary Care Provider] - 1 Week Additional Instructions: XRAY TODAY SHOWED MILD DEGENERATIVE DISC DISEASE AND OSTEOARTHRITIS, MOST PRONOUNCED AT L5-S1. FOLLOW-UP WITH YOUR PCP FOR FURTHER EVALUATION IF NOT IMPROVING WITH CONSERVATIVE MANAGEMENT. BE SURE TO GO THROUGH SLOW RANGE OF MOTION AND STRETCHING EXERCISES DAILY YOU ARE ABLE TO PREVENT STIFFENING UP AND MAKING THE DISCOMFORT WORSE. GO TO THE ED WITHOUT FAIL IF YOU DEVELOP NUMBNESS/TINGLING IN YOUR LEGS, NUMBNESS IN THE GENITAL REGION, LOSS OF BOWEL/BLADDER CONTROL, INTOLERABLE PAIN OR ANY OTHER CONCERNING SYMPTOMS. - Billing Disposition and Condition Condition: STABLE Disposition: Home
--- NOTE | 2017-12-02 14:34 | RAD ---
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 FINDINGS: ALIGNMENT: The alignment is normal. VERTEBRAL BODIES: The vertebral body heights are normal. The interpedicular distances are normal. JOINTS: There is facet osteoarthritis most pronounced at L5-S1. INTERVERTEBRAL DISCS: There is mild diffuse loss of intervertebral disc height. SOFT TISSUE: Unremarkable. OTHER: The pelvis is unremarkable. The lung bases are clear. IMPRESSION: MILD DEGENERATIVE DISC DISEASE AND OSTEOARTHRITIS, MOST PRONOUNCED AT L5-S1.
== END 2017-12-02 14:50 | disposition home or self-care (01) ==
LOC: UCEAST 12:40
DX: S39.012A Strain of muscle, fascia and tendon of lower back, initial encounter (principal); X58.XXXA Exposure to other specified factors, initial encounter; Y93.E3 Activity, vacuuming; Y92.9 Unspecified place or not applicable; M51.37 Other intervertebral disc degeneration, lumbosacral region; M47.817 Spondylosis without myelopathy or radiculopathy, lumbosacral region; Z88.6 Allergy status to analgesic agent; Z88.1 Allergy status to other antibiotic agents; Z88.0 Allergy status to penicillin; F17.210 Nicotine dependence, cigarettes, uncomplicated
CPT/HCPCS: 72110; 99212; G0463

== ENCOUNTER 2018-08-20 09:21 | Emergency (ER) | payer BC ==
--- OUTSIDE RECORDS SUMMARY | 2018-08-20 09:37 | XMS REPORT | Continuity of Care Document ---
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 Colleen Brown MD Primary Care Physician Unavailable Payers Date Identification Numbers Payment Provider Subscriber Expires: 2018 Policy Number: [id number] Jackie Xiong PayID: [id number] [address] [address] [place] [address] Policy Number: [id number] Jackie Xiong PayID: [id number] [address] [address] [place] [address] Advance Directives Description No Information Available Problems Description No Information Family History Date Family Member(s) Observation Comments General Not Known - Adopted Social History Type Date Description Comments Sex Unknown 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 Hand Dominance Right-handed Tobacco Use Start: Unknown Light tobacco smoker (10 or fewer cigarettes/day) ETOH Use Rarely consumes alcohol Recreational Drug Use Denies Drug Use Tobacco Use Start: Unknown Light tobacco smoker (10 or fewer cigarettes/day) Smoking Status Reviewed: 07/22/18 Light tobacco smoker (10 or fewer cigarettes/day) Allergies, Adverse Reactions, Alerts Date Description Reaction Status Severity Comments 04/22/2018 Amoxicillin Active 04/22/2018 Penicillin Active 05/20/2018 Erythromycin Active 05/20/2018 Doxycycline Active 05/20/2018 Cipro Active 05/20/2018 Naprosyn Active Medications Medication Date Status Form Strength Qnty SIG Indications Ordering Provider Frederic Active Tablets 10-325mg 20tabs take 1-2 Brown, 019 tablets Pat, every 4 MD hours as needed for pain Oxycodone HCL Active Tablets 5mg 30tabs 1 tablet Stephanie, 019 by mouth Pat, every 4-6 MD hours as needed Estradiol Active Tablets 2mg 1 by mouth Unknown 000 every day Cartia XT Active Caps ER 120mg Take One Unknown 000 24HR Capsule By Mouth Every Day Frederic Hx Tablets 5-325mg 30tabs 1 by mouth Beau Brown - every 4 Pat hour as MD Yanez needed pain Oxycodone-Aaron Hx Tablets 5-325mg 14tabs take one Stephanie, taminophen 019 - tablet by Pat mouth MD Yanez prior to physical therapy as needed for pain (no more than 2/day on therapy days) Meloxicam Hx Tablets 15mg 30tabs 1 by mouth Beau Brown - every day Pat c food MD Yanez Diclofenac Hx Tablets DR 75mg 60tabs take 1 Stephanie, Sodium 019 - tablet by Pat mouth MD Yanez twice daily with food Oxycodone-Aaron Hx Tablets 5-325mg Unknown taminophen 000 - 019 Trazodone HCL Hx Tablets 100mg Unknown 000 - [address] 30mg Unknown HCL 000 - Part 019 Immunizations Description No Information Available Vital Signs Date Vital Result Comment 07/22/2018 2:17pm BP Systolic 135 mmHg BP Diastolic 81 mmHg Body Temperature 96.9 F Heart Rate 98 /min Respiratory Rate 20 /min Height 64 inches 5'4" Weight 208.12 lb BMI (Body Mass Index) 35.7 kg/m2 BSA (Body Surface Area) 1.99 m2 [place] body weight in kilograms 54 kg Pain Level 6 LT knee 07/07/2018 1:35pm BP Systolic Sitting Left Arm 123 mmHg BP Diastolic Sitting Left Arm 86 mmHg Body Temperature 97.5 F Heart Rate 102 /min Height 64 inches 5'4" Weight 203.00 lb BMI (Body Mass Index) 34.8 kg/m2 BSA (Body Surface Area) 1.97 m2 [place] body weight in kilograms 54 kg O2 % BldC Oximetry 98 % 05/06/2018 3:35pm BP Systolic Sitting Right Arm 112 mmHg BP Diastolic Sitting Right Arm 82 mmHg Body Temperature 98.3 F Heart Rate 109 /min Height 64 inches 5'4" Weight 192.19 lb BMI (Body Mass Index) 33.0 kg/m2 BSA (Body Surface Area) 1.92 m2 [place] body weight in kilograms 54 kg O2 % BldC Oximetry 99 % Pain Level 4 04/29/2018 1:16pm BP Systolic 141 mmHg BP Diastolic 82 mmHg Body Temperature 97.3 F Heart Rate 115 /min Respiratory Rate 16 /min Height 64 inches 5'4" Weight 197.00 lb BMI (Body Mass Index) 33.8 kg/m2 BSA (Body Surface Area) 1.94 m2 [place] body weight in kilograms 54 kg O2 % BldC Oximetry 96 % room air Pain Level 6 04/22/2018 11:10am BP Systolic Sitting Right Arm 134 mmHg BP Diastolic Sitting Right Arm 83 mmHg Body Temperature 97.9 F Heart Rate 116 /min Weight 200.12 lb O2 % BldC Oximetry 98 % Pain Level 5 Lt Leg Results Description No Information Available Procedures Date Code Description Status 07/10/2018 99254 Arthroscopic anterior cruciate ligment Completed repair/reconstruct/augment 05/06/2018 59332 Tibial shaft fx closed w/wo fibular fx wo/manipulation Completed Encounters Type Date Location Provider Dx Diagnosis Office Visit 05/06/2018 Orthopaedic Office Pat Brown, M23.612 Ot spon disrupt 3:45p MD of anterior cruciate ligament of left knee S82.202A Unsp fracture of shaft of left tibia, init for clos fx Z72.0 Tobacco use Office Visit 04/29/2018 1:30p Orthopaedic Office Bessie Carroll M25.562 Pain in S., [facility] left knee M25.462 Effusion, left knee W18.30xA Fall on same level, unspecified, initial encounter Y93.66 Activity, soccer Office Visit 04/22/2018 2:30p Orthopaedic Office Bessie Carroll M25.562 Pain in S., RPAC left knee M25.462 Effusion, left knee W18.30xA Fall on same level, unspecified, initial encounter Y93.66 Activity, soccer Plan of Treatment No Information Available
--- OUTSIDE RECORDS SUMMARY | 2018-08-20 09:37 | XMS REPORT | Continuity of Care Document ---
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 Hand Dominance Right-handed Tobacco Use Start: Unknown Light tobacco smoker (10 or fewer cigarettes/day) ETOH Use Rarely consumes alcohol Recreational Drug Use Denies Drug Use Tobacco Use Start: Unknown Light tobacco smoker (10 or fewer cigarettes/day) Smoking Status Reviewed: 08/04/18 Light tobacco smoker (10 or fewer cigarettes/day) Allergies, Adverse Reactions, Alerts Active Allergies Reaction Severity Comments Date Amoxicillin 04/22/2018 Penicillin 04/22/2018 Erythromycin 05/20/2018 Doxycycline 05/20/2018 Cipro 05/20/2018 Naprosyn 05/20/2018 Medications Active Medications SIG Qnty Indications Ordering Provider Date Estradiol 1 by mouth every Unknown 2mg Tablets day Cartia XT Take One Capsule Unknown 120mg Caps ER By Mouth Every 24HR Day History Medications [place] 1 by mouth every 6 32tabs Pat Brown MD 07/30/2018 - 5-325mg Tablets hour as needed 08/12/2018 pain [place] take 1-2 tablets 20tabs Pat Brown MD 07/21/2018 - 10-325mg every 4 hours as 08/12/2018 Tablets needed for pain Oxycodone HCL 1 tablet by mouth 30tabs Pat Brown MD 07/16/2018 - 5mg every 4-6 hours as 08/12/2018 Tablets needed [place] 1 by mouth every 4 30taPat Mckinney MD 07/14/2018 - 5-325mg Tablets hour as needed 07/21/2018 pain Oxycodone-Acetaminop take one tablet by 14taPat Mckinney MD 2018 - hen mouth prior to 07/07/2018 5-325mg Tablets physical therapy as needed for pain (no more than 2/day on therapy days) Meloxicam 1 by mouth every 30tabs Pat Brown MD 04/29/2018 - 15mg day c food 05/20/2018 Tablets Diclofenac Sodium take 1 tablet by 60tabs Pat Brown MD 04/22/2018 - mouth twice daily 04/29/[address] with food Oxycodone-Acetaminop Unknown - hen 05/06/2018 5-325mg Tablets Trazodone HCL Unknown - 100mg 07/07/2018 Tablets Duloxetine HCL Unknown - 30mg 07/07/2018 Caps Part Immunizations Description No Information Available Vital Signs Date Vital Result Comment 08/12/2018 10:19am BP Systolic Sitting Left Arm 125 mmHg BP Diastolic Sitting Left Arm 85 mmHg Body Temperature 97.6 F Heart Rate 97 /min Height 64 inches 5'4" Weight 205.00 lb BMI (Body Mass Index) 35.2 kg/m2 BSA (Body Surface Area) 1.98 m2 [place] body weight in kilograms 54 kg O2 % BldC Oximetry 100 % 07/22/2018 2:17pm BP Systolic 135 mmHg BP Diastolic 81 mmHg Body Temperature 96.9 F Heart Rate 98 /min Respiratory Rate 20 /min Height 64 inches 5'4" Weight 208.12 lb BMI (Body Mass Index) 35.7 kg/m2 BSA (Body Surface Area) 1.99 m2 [place] body weight in kilograms 54 kg Pain Level 6 LT knee 07/07/2018 1:35pm BP Systolic Sitting Left Arm 123 mmHg BP Diastolic Sitting Left Arm 86 mmHg Body Temperature 97.5 F Heart Rate 102 /min Height 64 inches 5'4" Weight 203.00 lb BMI (Body Mass Index) 34.8 kg/m2 BSA (Body Surface Area) 1.97 m2 [place] body weight in kilograms 54 kg O2 % BldC Oximetry 98 % 05/06/2018 3:35pm BP Systolic Sitting Right Arm 112 mmHg BP Diastolic Sitting Right Arm 82 mmHg Body Temperature 98.3 F Heart Rate 109 /min Height 64 inches 5'4" Weight 192.19 lb BMI (Body Mass Index) 33.0 kg/m2 BSA (Body Surface Area) 1.92 m2 [place] body weight in kilograms 54 kg O2 % BldC Oximetry 99 % Pain Level 4 04/29/2018 1:16pm BP Systolic 141 mmHg BP Diastolic 82 mmHg Body Temperature 97.3 F Heart Rate 115 /min Respiratory Rate 16 /min Height 64 inches 5'4" Weight 197.00 lb BMI (Body Mass Index) 33.8 kg/m2 BSA (Body Surface Area) 1.94 m2 [place] body weight in kilograms 54 kg O2 [...] Available Procedures Date Code Description Status 07/10/2018 94265 Arthroscopic anterior cruciate ligment Completed repair/reconstruct/augment 07/10/2018 81901 Arthroscopic anterior cruciate ligment Completed repair/reconstruct/augment 05/06/2018 52978 Tibial shaft fx closed w/wo fibular fx wo/manipulation Completed Encounters Type Date Location Provider Dx Diagnosis Office Visit 05/06/2018 Orthopaedic Office Pat Brown, M23.612 Oth spon disrupt 3:45p of anterior cruciate ligament of left knee [...] Office Bessie Carroll M25.562 Pain in S., [facility] left knee M25.462 Effusion, left knee W18.30xA Fall on same level, unspecified, initial encounter Y93.66 Activity, soccer Plan of Treatment Future Appointment(s):09/23/2018 9:30 am - Pat Brown MD at [facility] [place]/12/2018 - Pat Brown, MDS83.512D Sprain of anterior cruciate ligament of left knee, aukesfebyW32.12 Unilateral primary osteoarthritis, left kneeNew Therapy:Physical/Occupational Therapy
[2018-08-20 09:45] VITALS: BP 140/79
--- NOTE | 2018-08-20 10:29 | UC ---
Back Pain HPI - HPI Summary HPI Summary: Pt presents with c/o sudden onset low back pain after moving a chair. - History of Current Complaint Chief Complaint: UCBackPain Stated Complaint: BACK PAIN Time Seen by Provider: 08/20/18 10:18 Hx Obtained From: Patient Hx Last Menstrual Period: 2000 ?: No Onset/Duration: Sudden Onset, Lasting Days, Still Present Timing: Lasting Days Severity Initially: Mild Severity Currently: Moderate Pain Intensity: 10 Character: Dull, Aching, Stiffness Aggravating Factor(s): Movement, Lifting, Bending, Walking Alleviating Factor(s): Rest, Position Associated Signs And Symptoms: Positive: Negative - Risk Factors AAA Risk Factors: Negative TAD Risk Factors: Negative Cauda Equina Risk Factors: Negative Epidural Abscess Risk Factors: Negative - Allergies/Home Medications Allergies/Adverse Reactions: Allergies Allergy/AdvReac Type Severity Reaction Status Date / Time doxycycline Allergy Rash Verified 08/20/18 09:46 erythromycin base Allergy Rash Verified 08/20/18 09:46 NSAIDS (Non-Steroidal Allergy Bleeding Verified 08/20/18 09:46 Anti-Inflamma Penicillins Allergy Rash Verified 08/20/18 09:46 aspirin AdvReac Bleeding Verified 08/20/18 09:46 ciprofloxacin [From Cipro] AdvReac GI Upset Verified 08/20/18 09:46 PMH/Surg Hx/FS Hx/Imm Hx Previously Healthy: Yes - Surgical History Surgical History: Yes Surgery Procedure, Year, and Place: hysterectomy- 1999, [place], [place] WITH APPENDECTOMY LAPAROSCOPY, [id number], YARON hernia-2000, 2014, [facility] [place] SURGERY FROM DOG BITE, 2008, [facility]. REMOVAL OF LEFT BREAST DUCTS X 2. LUMPECTOMY - Family History Known Family History: Positive: Hypertension - Social History Occupation: Employed Full-time Lives: With Family Alcohol Use: Rare Substance Use Type: None Smoking Status (MU): Heavy Every Day Tobacco Smoker Type: Cigarettes Amount Used/How Often: 1/2 pack PER DAY Length of Time of Smoking/Using Tobacco: since age 18 Have You Smoked in the Last Year: Yes Household Exposure Type: Cigarettes - Immunization History Most Recent Influenza Vaccination: no Most Recent Tetanus Shot: 2013 Vaccination Up to Date: Yes Review of Systems All Other Systems Reviewed And Are Negative: Yes Constitutional: Positive: Negative Skin: Positive: Negative Eyes: Positive: Negative ENT: Positive: Negative Respiratory: Positive: Negative Cardiovascular: Positive: Negative Gastrointestinal: Positive: Negative Genitourinary: Positive: Negative Motor: Positive: Decreased ROM Neurovascular: Positive: Negative Musculoskeletal: Positive: Arthralgia, Decreased ROM, Myalgia - low back Neurological: Positive: Negative Psychological: Positive: Negative Is Patient Immunocompromised?: No Physical Exam Triage Information Reviewed: Yes Appearance: Pain Distress Vital Signs: Initial Vital Signs Temp 97.4 F 08/20/18 09:37 Pulse 111 08/20/18 09:37 Resp 18 08/20/18 09:37 BP 140/79 08/20/18 09:37 Pulse Ox 100 08/20/18 09:37 Vital Signs Reviewed: Yes Eye Exam: Normal ENT Exam: Normal Neck exam: Normal Respiratory Exam: Normal Cardiovascular Exam: Normal Musculoskeletal: Positive: Strength Limited @ - low back,, ROM Limited @ Neurological Exam: Normal Psychological Exam: Normal Skin Exam: Normal Back Pain Course/Dx - Differential Dx/Diagnosis Differential Diagnosis/HQI/PQRI: Herniated Disc, Strain, Sprain Provider Diagnosis: Low back pain Discharge - Sign-Out/Discharge Documenting (check all that apply): Patient Departure All imaging exams completed and their final reports reviewed: No Studies - Discharge Plan Condition: Stable Disposition: HOME Prescriptions: Cyclobenzaprine TAB* [Flexeril 10 MG TAB*] 10 mg PO Q8H PRN #15 tab PRN Reason: Pain predniSONE TAB* [Deltasone 10 MG TAB*] 30 mg PO DAILY #12 tab Patient Education Materials: Acute Low Back Pain (ED), Lower Back Exercises (ED ) Referrals: Colleen Brown MD [Primary Care Provider] - If Needed - Billing Disposition and Condition Condition: STABLE Disposition: Home
== END 2018-08-20 10:42 | disposition home or self-care (01) ==
LOC: UCCORT 09:21
DX: M54.5 Low back pain (principal); Z88.1 Allergy status to other antibiotic agents; Z88.0 Allergy status to penicillin; Z88.8 Allergy status to other drugs, medicaments and biological substances; Z87.891 Personal history of nicotine dependence
CPT/HCPCS: 99212; G0463

== ENCOUNTER 2019-05-30 09:15 | Emergency (ER) | payer BC ==
[2019-05-30 10:34] VITALS: BP 133/76
--- NOTE | 2019-05-30 11:00 | UC ---
Complaint Female HPI - HPI Summary HPI Summary: Pt presents with c/o right flank pain, fever, chills and generalized malasie X 2 days. Pt has hx of kidney stones, uti and pyelonephritis. - History Of Current Complaint Chief Complaint: UCGeneralIllness Stated Complaint: URINARY AND SORE THROAT Time Seen by Provider: 05/30/19 10:54 Hx Obtained From: Patient Hx Last Menstrual Period: 2000 ?: No Onset/Duration: Sudden Onset, Lasting Days, Still Present, Worse Since - onset Timing: Constant Severity Initially: Mild Severity Currently: Moderate Pain Intensity: 8 Character: Sharp, Dull, Burning, Cramping, Colicy Aggravating Factor(s): Urination Alleviating Factor(s): Meds - otc antipyretic Associated Signs And Symptoms: Positive: Fever, Back Pain - Risk Factors Ectopic Risk Factor: Negative Ovarian Torsion Risk Factor: Negative - Allergies/Home Medications Allergies/Adverse Reactions: Allergies Allergy/AdvReac Type Severity Reaction Status Date / Time doxycycline Allergy Rash Verified 05/30/19 10:20 erythromycin base Allergy Rash Verified 05/30/19 10:20 NSAIDS (Non-Steroidal Allergy Bleeding Verified 05/30/19 10:20 Anti-Inflamma Penicillins Allergy Rash Verified 05/30/19 10:20 aspirin AdvReac Bleeding Verified 05/30/19 10:20 ciprofloxacin [From Cipro] AdvReac GI Upset Verified 05/30/19 10:20 PMH/Surg Hx/FS Hx/Imm Hx Previously Healthy: Yes - Surgical History Surgical History: Yes Surgery Procedure, Year, and Place: hysterectomy- 1999, [place], [place] WITH APPENDECTOMY LAPAROSCOPY, [phone], [place] hernia-2000, [place] [facility], 2008, [facility]. REMOVAL OF LEFT BREAST DUCTS X 2. LUMPECTOMY. ACL, LEFT RECONSTRUCTION 07/07 - Family History Known Family History: Positive: Hypertension - Social History Occupation: Employed Full-time Lives: With Family Alcohol Use: Rare Substance Use Type: None Smoking Status (MU): Former Smoker Type: Cigarettes Amount Used/How Often: 1/2 pack PER DAY Length of Time of Smoking/Using Tobacco: since age 18 Have You Smoked in the Last Year: Yes When Did the Patient Quit Smoking/Using Tobacco: september 2018 Household Exposure Type: Cigarettes - Immunization History Most Recent Influenza Vaccination: no Most Recent Tetanus Shot: 2012 Hx Tetanus, Diphtheria Vaccination: Yes Vaccination Up to Date: Yes Review of Systems All Other Systems Reviewed And Are Negative: Yes Constitutional: Positive: Fever, Chills, Fatigue Skin: Positive: Rash Eyes: Positive: Negative ENT: Positive: Negative Respiratory: Positive: Negative Gastrointestinal: Positive: Negative Genitourinary: Positive: Dysuria, Other - right flank pain Motor: Positive: Negative Neurovascular: Positive: Negative Musculoskeletal: Positive: Myalgia Neurological: Positive: Negative Psychological: Positive: Negative Is Patient Immunocompromised?: No Physical Exam Triage Information Reviewed: Yes Appearance: Pain Distress Vital Signs: Initial Vital Signs Temp 97.7 F 05/30/19 10:22 Pulse 76 05/30/19 10:22 Resp 17 05/30/19 10:22 BP 133/76 05/30/19 10:22 Pulse Ox 99 05/30/19 10:22 Vital Signs Reviewed: Yes Eye Exam: Normal ENT Exam: Normal Dental Exam: Normal Neck exam: Normal Respiratory Exam: Normal Cardiovascular Exam: Normal Abdomen Description: Positive: CVA Tenderness (R) Musculoskeletal Exam: Normal Neurological Exam: Normal Psychological Exam: Normal Skin Exam: Normal Complaint Female Dx - Differential Dx/Diagnosis Differential Diagnosis/HQI/PQRI: Urinary Tract Infection Provider Diagnosis: Right flank pain, Hematuria Discharge ED - Sign-Out/Discharge Documenting (check all that apply): Patient Departure All imaging exams completed and their final reports reviewed: No Studies - Discharge Plan Condition: Stable Disposition: HOME-RECOMMEND TO ED Prescriptions: Sulfamethox/Trimethoprim DS* [Bactrim DS 800/160 TAB*] 1 tab PO Q12H #14 tab Patient Education Materials: Hematuria (ED), Flank Pain (ED) Referrals: Moise Gann MD [Primary Care Provider] - As Soon As Possible Additional Instructions: Please note, if your symptoms do not improve or they worsen, it is recommended that you go to the closest emergency room as soon as possible. - Billing Disposition and Condition Condition: STABLE Disposition: Home-Recommend to ED
== END 2019-05-30 11:08 | disposition home health service (06) ==
LOC: UCCORT 09:15
DX: R10.9 Unspecified abdominal pain (principal); R31.9 Hematuria, unspecified; R50.9 Fever, unspecified; R53.83 Other fatigue; R21 Rash and other nonspecific skin eruption; M79.10 Myalgia, unspecified site; Z87.891 Personal history of nicotine dependence; Z88.6 Allergy status to analgesic agent; Z88.1 Allergy status to other antibiotic agents; Z88.0 Allergy status to penicillin
CPT/HCPCS: 81003; 87651; 99212; G0463